=== PATIENT | female | born 1960 | race Hispanic/Latino ===

== ENCOUNTER 2017-06-16 17:00 | Emergency (ER) | payer MEDICARE, MEDICAID ==
[2017-06-16 17:10] VITALS: BP 183/90; PULSE 84; RESP 23; TEMP 98.7; O2SAT 98; BMI 28.4
[2017-06-16] MEDS: Albuterol-Ipratrop 3 mg / 0.5 (3 ml) UD IH SCH ×2 (17:13→17:30)
--- NOTE | 2017-06-16 17:16 | ED PDOC ---
Arrival/HPI - General Time Seen by Provider: 06/16/17 17:04 Historian: Patient - History of Present Illness Narrative History of Present Illness (Text): 06/16/17 17:05 Juana Sadler is a 57 year old female, whose past medical history includes COPD , asthma, hypertension, and hyperlipidemia, who presents to the Emergency department complaining of a worsening cough for the past three weeks. Patient reports she has been experiencing shortness of breath, rhinorrhea, congestion, and yellow sputum. She is a current smoker and states she was placed on antibiotics for her cough by her PMD, but was then recommended to come to the Emergency department since her symptoms became worse. Patient denies chest pain , headache, fever, chills, back pain, nausea, vomiting, diarrhea, abdominal pain , lower extremity pain/swelling, or other complaints. PMD: Dr. Guerrero Time/Duration: > week (3 weeks) Symptom Onset: Gradual Symptom Course: Worsening Modifying Factors (Text): None Associated Symptoms (Text): shortness of breath, rhinorrhea, and yellow sputum. Past Medical History - Provider Review Nursing Documentation Reviewed: Yes - Cardiac Hx Pacemaker: No - Neurological Hx Paralysis: No - Hematological/Oncological Hx Blood Transfusions: No - Musculoskeletal/Rheumatological Hx Musculoskeletal Disorders: Yes (SCIATICA) - Psychiatric Hx Emotional Abuse: No Hx Physical Abuse: No Hx Substance Use: No - Anesthesia Hx Anesthesia Reactions: No Hx Malignant Hyperthermia: No - Suicidal Assessment Feels Threatened In Home Enviroment: No Family/Social History - Physician Review Nursing Documentation Reviewed: Yes Family/Social History: Unknown Family HX Smoking Status: Light Smoker < 10 Cigarettes Daily Hx Alcohol Use: No Hx Substance Use: No Allergies/Home Meds Allergies/Adverse Reactions: Allergies No Known Allergies Allergy (Verified 06/18/17 00:25) Home Medications: Home Meds Medication Instructions Recorded Confirmed Aspirin [Aspirin] 325 mg PO DAILY 11/19/15 06/18/17 Atorvastatin [Lipitor] 40 mg PO QPM 11/19/15 06/18/17 Ipratropium [Atrovent HFA] 1 puff INH DAILY 11/19/15 06/18/17 Levothyroxine [Synthroid] 188 mcg PO DAILY 11/19/15 06/18/17 Losartan [Cozaar] 50 mg PO DAILY 11/19/15 06/18/17 Oxycodone HCl [Oxycodone HCl] 10 mg PO Q6H PRN 11/19/15 06/18/17 Budesonide/Formoterol Fumarate 1 inh INH DAILY 06/16/17 06/18/17 [Symbicort 160-4.5 Mcg Inhaler] Fenofibrate Nanocrystallized 145 mg PO DAILY 06/16/17 06/18/17 [Fenofibrate] Gabapentin [Neurontin] 300 mg PO PRN PRN 06/16/17 06/18/17 tiZANidine [Zanaflex] 4 mg PO PRN PRN 06/16/17 06/18/17 Review of Systems - Physician Review All systems were reviewed & negative as marked: Yes - Review of Systems Constitutional: absent: Fevers ENT: Rhinorrhea Respiratory: SOB, Cough, Sputum (yellow) Cardiovascular: absent: Chest Pain Neurological: absent: Headache Physical Exam Vital Signs Temp Pulse Resp BP Pulse Ox 06/16/17 17:20 23 98 06/16/17 17:09 98.7 F 84 23 183/90 H 98 Temperature: Afebrile Blood Pressure: Hypertensive Pulse: Regular Respiratory Rate: Normal Appearance: Positive for: Well-Appearing, Non-Toxic, Comfortable Pain Distress: None Mental Status: Positive for: Alert and Oriented X 3 - Systems Exam Head: Present: Atraumatic, Normocephalic Pupils: Present: PERRL Extroacular Muscles: Present: EOMI Conjunctiva: Present: Normal Mouth: Present: Moist Mucous Membranes Neck: Present: Normal Range of Motion Respiratory/Chest: Present: Decreased Breath Sounds (bilateral decreased breath sounds), Rhonchi (diffused rhonchi) Cardiovascular: Present: Regular Rate and Rhythm, Normal S1, S2. No: Murmurs Abdomen: Present: Normal Bowel Sounds. No: Tenderness, Distention, Peritoneal Signs Back: Present: Normal Inspection Upper Extremity: Present: Normal Inspection. No: Cyanosis, Edema Lower Extremity: Present: Normal Inspection. No: Edema Neurological: Present: GCS=15, CN II-XII Intact, Speech Normal Skin: Present: Warm, Dry, Normal Color. No: Rashes Psychiatric: Present: Alert, Oriented x 3, Normal Insight, Normal Concentration Medical Decision Making ED Course and Treatment: 06/16/17 17:05 Impression: 57 year old female with worsening cough and shortness of breath. Plan: -- EKG -- Chest X-ray -- Labs -- Urinalysis -- Duoneb and Solumedrol -- Reassess and disposition Progress Notes: EKG: Ordered, reviewed, and independently interpreted the EKG. Rate : 81 BPM Rhythm : NSR Interpretation : No ST-segment elevations or depressions, no T-wave inversions, normal intervals. 06/16/17 18:17 Leaving Against Medical Advice (AMA): Patient is persistently wheezing and is tachypneic. The patient is choosing to leave against medical advice. I have personally explained to the patient that choosing to do so may result in permanent bodily harm or . I have discussed at great length that without further evaluation and monitoring there may be unforeseen circumstances and/or deterioration causing permanent bodily harm or as a result of their choice. The patient is alert, oriented, and shows the mental capacity to make clear decisions regarding the patients health care at this time. The patient continues to wish to leave against medical advice and states she has to go take care of her dog. In light of the patients decision to leave against medical advice, follow-up has been arranged and the patient is aware of the importance to following up as instructed. The patient has been advised that they should return to the emergency room immediately if they change their mind at any time, or if their condition begins to change or worsen in any way. - Lab Interpretations Lab Results: 06/16/17 17:20 06/16/17 17:20 Lab Results 06/16/17 18:30: Urine Color Yellow, Urine Appearance Clear, Urine pH 6.0, Ur Specific [place] 1.010, Urine Protein Negative, Urine Glucose (UA) Negative, Urine Ketones Negative, Urine Blood Trace-lysed H, Urine Nitrate Negative, Urine Bilirubin Negative, Urine Urobilinogen 0.2, Ur Leukocyte Esterase Negative , Urine RBC 1 - 3, Urine WBC 0 - 2, Ur Epithelial Cells 0 - 2 06/16/17 17:20: Sodium 143, Chloride 105, Potassium 4.3, Carbon Dioxide 28, Anion Gap 14, BUN 17, Creatinine 0.8, Est GFR ( Amer) > 60, Est GFR (Non- Af Amer) > 60, Random Glucose 88, Calcium 9.2, Magnesium 1.8, Total Bilirubin 0.4, AST 37, ALT 34, Alkaline Phosphatase 99, Lactate Dehydrogenase 526, Total Creatine Kinase 93, Troponin I < 0.01, NT-Pro-B Natriuret Pep 678 H, Total Protein 6.7, Albumin 3.6, Globulin 3.1, Albumin/Globulin Ratio 1.2 06/16/17 17:20: PT 10.7, INR 0.99, APTT 25.7 06/16/17 17:20: WBC 9.6, RBC 4.58, Hgb 13.3, Hct 41.0, MCV 89.5, MCH 29.0, MCHC 32.4, RDW 16.4 H, Plt Count 384, MPV 9.4, Gran % 65.3, Lymph % (Auto) 24.3, [place] % (Auto) 7.8 H, Eos % (Auto) 2.3, Baso % (Auto) 0.3, Gran # 6.24, Lymph # 2.3, [place] # 0.8 H, Eos # 0.2, Baso # 0.03 06/16/17 17:20: pO2 36, VBG pH 7.32, VBG pCO2 54.0, VBG HCO3 27.8, VBG Total CO2 29.5 H, VBG O2 Sat (Calc) 73.4 H, VBG Base Excess 0.7, VBG Potassium 4.4, Sodium 141.0, Chloride 111.0 H, Glucose 91, Lactate 1.2, FiO2 21.0, Venous Blood Potassium 4.4 I have reviewed the lab results: Yes - RAD Interpretation Radiology Orders: 06/16/17 17:10 CHEST PORTABLE [RAD] Stat - EKG Interpretation Interpreted by ED Physician: Yes Type: 12 lead EKG - Medication Orders Current Medication Orders: Discontinued Medications Albuterol/Ipratropium (Duoneb 3 Mg/0.5 Mg (3 Ml) Ud) 3 ml IH Q15M ZARA Stop: 06/16/17 17:46 Last Admin: 06/16/17 17:30 Dose: 3 ml Methylprednisolone (Solu-Medrol) 125 mg IVP STAT STA Stop: 06/16/17 17:11 Last Admin: 06/16/17 17:30 Dose: 125 mg - Scribe Statement The provider has reviewed the documentation as recorded by the Scribe 06/16/2017 Hailey Streeter Provider [place] Attestation: All medical record entries made by the Scribe were at my direction and personally dictated by me. I have reviewed the chart and agree that the record accurately reflects my personal performance of the history, physical exam, medical decision making, and the department course for this patient. I have also personally directed, reviewed, and agree with the discharge instructions and disposition. Disposition/Present on Arrival - Present on Arrival Any Indicators Present on Arrival: No - Disposition Have Diagnosis and Disposition been Completed?: Yes Diagnosis: COPD (chronic obstructive pulmonary disease), Elevated brain natriuretic peptide (BNP) level Disposition: AGAINST MEDICAL ADVICE Disposition Time: 05:00 Condition: UNKNOWN Discharge Instructions (ExitCare): COPD (Chronic Obstructive Pulmonary Disease ) (ED), Against Medical Advice (ED) Additional Instructions: please follow up with your doctor. return to emergency room with worsening symptoms or concerns. Prescriptions: Albuterol 0.083% [Albuterol 0.083% Inhal Araceli (2.5 mg/3 ml) UD] 2.5 mg IH Q6 PRN #20 neb PRN Reason: Wheezing Mask, Face [Nebulizer Aerosol Mask Adult] 1 dev XX PRN PRN #1 dev PRN Reason: Wheezing Nebulizer [Aeroeclipse II] 1 each MC Q6 PRN #1 each PRN Reason: Wheezing Prednisone 50 mg PO DAILY #5 tablet Forms: [employer] (Citizen [place])
[2017-06-16 17:42] LABS: VENOUS BLOOD GAS BASE EXCESS 0.7 mmol/L (0.0-2.0); VENOUS BLOOD GAS PO2 36 mm/Hg (30-55); VENOUS BLOOD PH 7.32 (7.32-7.43)
[2017-06-16 17:47] LABS: BASO # 0.03 K/mm3 (0.0-2.0); BASO % 0.3 % (0.0-3.0); EOS # 0.2 (0.0-0.7); EOS % 2.3 % (1.5-5.0); GRAN # 6.24 (1.4-6.5); GRAN % 65.3 % (50.0-68.0); HEMOGLOBIN 13.3 gm/dL (12.0-16.0); LYMPH # 2.3 (1.2-3.4); LYMPH % 24.3 % (22.0-35.0); MEAN CELL VOLUME 89.5 fL (80.0-105.0); MEAN CORPUSCULAR HGB CONC 32.4 g/dl (31.0-37.0); MEAN PLATELET VOLUME 9.4 fl (7.0-11.0); MONO # 0.8 (0.1-0.6); MONO % 7.8 % (1.0-6.0); PLATELET COUNT 384 10^3/uL (120.0-450.0); RBC 4.58 10^6/uL (3.5-6.1); RED CELL DISTRIBUTION WIDTH 16.4 % (11.5-14.5); WHITE BLOOD COUNT 9.6 10^3/ul (4.5-11.0)
[2017-06-16 17:50] LABS: ALB/GLOB RATIO 1.2 (1.1-1.8); ALBUMIN 3.6 g/dL (3.0-4.8); ALT/SGPT 34 U/L (7-56); AST/SGOT 37 U/L (15-39); BLOOD UREA NITROGEN 17 mg/dL (7-21); CALCIUM 9.2 mg/dL (8.4-10.5); GFR AFRICAN-AMERICAN > 60; GFR NON-AFRICAN AMERICAN > 60; MAGNESIUM 1.8 mg/dL (1.7-2.2)
[2017-06-16 17:55] LABS: INR 0.99 (0.93-1.08); PARTIAL THROMBOPLASTIN TIME 25.7 Seconds (23.7-30.8); PROTHROMBIN TIME 10.7 Seconds (9.9-11.8)
[2017-06-16 18:01] LABS: B-TYPE NATRIURETIC PEPTIDE 678 pg/mL (0-450)
[2017-06-16 18:02] LABS: TROPONIN I < 0.01 ng/mL
[2017-06-16 18:50] LABS: URINE BILIRUBIN NEGATIVE (NEGATIVE); URINE BLOOD TRACE-LYSED (NEGATIVE); URINE GLUCOSE (UA) NEGATIVE (NEGATIVE); URINE LEUKOCYTE ESTERASE NEGATIVE Leu/uL (NEGATIVE); URINE NITRATE NEGATIVE (NEGATIVE); URINE PROTEIN NEGATIVE mg/dL (<30 mg/dL); URINE UROBILINOGEN 0.2 E.U./dL (<1 E.U./dL)
[2017-06-16 18:51] LABS: URINE APPEARANCE CLEAR (CLEAR); URINE COLOR YELLOW (YELLOW)
[2017-06-16 19:06] LABS: URINE EPITHELIAL CELLS 0 - 2 /hpf (0-5); URINE WBC 0 - 2 /hpf (0-6)
--- NOTE | 2017-06-17 10:45 | CARD ---
APPROVED REPORT EKG Measurement Heart [id number] <Conclusion> Normal sinus rhythm Anteroseptal infarct, age undetermined LAD STTW changes C/W ECG 05/26/16: LBBB no longer presnt
--- NOTE | 2017-06-17 12:22 | RAD ---
HISTORY: cough COMPARISON: 05/26/2016 FINDINGS: LUNGS: Multiple scattered calcified granulomas. No acute findings PLEURA: No significant pleural effusion identified, no pneumothorax apparent. CARDIOVASCULAR: Normal. OSSEOUS STRUCTURES: No significant abnormalities. VISUALIZED UPPER ABDOMEN: Normal. OTHER FINDINGS: None. IMPRESSION: No active disease.
== END 2017-06-16 18:30 | disposition left against medical advice (07) ==
LOC: ED 17:00
DX: J44.9 Chronic obstructive pulmonary disease, unspecified (principal); R79.89 Other specified abnormal findings of blood chemistry
CPT/HCPCS: 71010; 80053; 81001; 82550; 82803; 83615; 83735; 83880; 84484; 85025; 85610; 85730; 93005; 96374; 99284; J2930

== ENCOUNTER 2017-06-17 23:13 | Inpatient (IN) | payer MEDICARE, MEDICAID ==
[2017-06-17 23:14] VITALS: BMI 28.4
--- NOTE | 2017-06-17 23:18 | ED PDOC ---
Arrival/HPI - General Time Seen by Provider: 06/17/17 23:14 Historian: Patient - History of Present Illness Narrative History of Present Illness (Text): 06/17/17 23:17 Juana Sadler is a 57 year old female smoker, whose past medical history includes COPD, asthma, hypertension, and hyperlipidemia, who presents to the Emergency department complaining of worsening shortness of breath tonight. Patient reports associated cough and congestion. Patient was seen in the Emergency department yesterday for similar complaints, had a full work-up, and was offered hospital admission for further evaluation. Patient reports she felt better and left against medical advice. Patient states today symptoms returned and worsened throughout the day. Patient denies any nausea, vomiting, diarrhea, urinary symptoms, back pain, neck pain, headache, dizziness, or any other complaints. PMD: Dr. Jade Guerrero Time/Duration: Other (tonight) Symptom Onset: Gradual Symptom Course: Worsening Activities at Onset: Rest, Light Context: Home Past Medical History - Provider Review Nursing Documentation Reviewed: Yes - Cardiac Hx Pacemaker: No - Pulmonary Hx Respiratory Disorders: Yes Hx Chronic Obstructive Pulmonary Disease (COPD): Yes - Neurological Hx Paralysis: No - HEENT Hx HEENT Disorder: No - Renal Hx Renal Disorder: No - Endocrine/Metabolic Hx Endocrine Disorders: No - Hematological/Oncological Hx Blood Transfusions: No - Integumentary Hx Dermatological Disorder: No - Musculoskeletal/Rheumatological Hx Musculoskeletal Disorders: Yes (SCIATICA) - Gastrointestinal Hx Gastrointestinal Disorders: No - Genitourinary/Gynecological Hx Genitourinary Disorders: No - Psychiatric Hx Emotional Abuse: No Hx Physical Abuse: No Hx Substance Use: No - Surgical History Hx Cholecystectomy: Yes - Anesthesia Hx Anesthesia Reactions: No Hx Malignant Hyperthermia: No - Suicidal Assessment Feels Threatened In Home Enviroment: No Family/Social History - Physician Review Nursing Documentation Reviewed: Yes Family/Social History: Unknown Family HX Smoking Status: Light Smoker < 10 Cigarettes Daily Hx Alcohol Use: No Hx Substance Use: No Allergies/Home Meds Allergies/Adverse Reactions: Allergies No Known Allergies Allergy (Verified 06/18/17 00:25) Home Medications: Home Meds Medication Instructions Recorded Confirmed Aspirin [Aspirin] 325 mg PO DAILY 11/19/15 06/18/17 Atorvastatin [Lipitor] 40 mg PO QPM 11/19/15 06/18/17 Ipratropium [Atrovent HFA] 1 puff INH DAILY 11/19/15 06/18/17 Levothyroxine [Synthroid] 188 mcg PO DAILY 11/19/15 06/18/17 Losartan [Cozaar] 50 mg PO DAILY 11/19/15 06/18/17 Oxycodone HCl [Oxycodone HCl] 10 mg PO Q6H PRN 11/19/15 06/18/17 Budesonide/Formoterol Fumarate 1 inh INH DAILY 06/16/17 06/18/17 [Symbicort 160-4.5 Mcg Inhaler] Fenofibrate Nanocrystallized 145 mg PO DAILY 06/16/17 06/18/17 [Fenofibrate] Gabapentin [Neurontin] 300 mg PO PRN PRN 06/16/17 06/18/17 tiZANidine [Zanaflex] 4 mg PO PRN PRN 06/16/17 06/18/17 Review of Systems - Physician Review All systems were reviewed & negative as marked: Yes - Review of Systems Constitutional: Normal. absent: Fevers Eyes: Normal ENT: Other (+congestion) Respiratory: SOB, Cough Gastrointestinal: Normal. absent: Abdominal Pain, Diarrhea, Nausea, Vomiting Genitourinary Female: Normal. absent: Dysuria, Frequency, Hematuria, Urine Output Changes Musculoskeletal: Normal. absent: Back Pain, Neck Pain Skin: Normal. absent: Rash Neurological: Normal. absent: Headache, Dizziness Endocrine: Normal Hemo/Lymphatic: Normal Psychiatric: Normal Physical Exam Vital Signs Reviewed: Yes Vital Signs Temp Pulse Resp BP Pulse Ox 06/18/17 01:46 99 H 20 119/66 98 06/18/17 01:18 95 H 21 136/61 96 06/17/17 23:15 98.8 F 94 H 22 120/60 98 Temperature: Afebrile Blood Pressure: Normal Pulse: Regular Respiratory Rate: Normal Appearance: Positive for: Well-Appearing, Non-Toxic, Comfortable Pain Distress: None Mental Status: Positive for: Alert and Oriented X 3 - Systems Exam Head: Present: Atraumatic, Normocephalic Pupils: Present: PERRL Extroacular Muscles: Present: EOMI Conjunctiva: Present: Normal Mouth: Present: Moist Mucous Membranes Neck: Present: Normal Range of Motion Respiratory/Chest: Present: Wheezes. No: Respiratory Distress, Accessory Muscle Use Cardiovascular: Present: Regular Rate and Rhythm, Normal S1, S2. No: Murmurs Abdomen: Present: Normal Bowel Sounds. No: Tenderness, Distention, Peritoneal Signs Back: Present: Normal Inspection Upper Extremity: Present: Normal Inspection. No: Cyanosis, Edema Lower Extremity: Present: Normal Inspection. No: Edema Neurological: Present: GCS=15, CN II-XII Intact, Speech Normal Skin: Present: Warm, Dry, Normal Color. No: Rashes Psychiatric: Present: Alert, Oriented x 3, Normal Insight, Normal Concentration Medical Decision Making ED Course and Treatment: 06/17/17 23:17 Impression: 57 year old female complaining of worsening shortness of breath, cough, and congestion. Differential Diagnosis included but are not limited to: COPD vs. CHF vs. ACS vs. pneumonia vs. bronchitis Plan: -- EKG -- Chest X-ray -- Labs, cardiac enzymes, BNP, blood cultures, VBG -- Duoneb -- Solu-medrol -- Reassess and disposition Prior Visits: Notes and results from previous visits were reviewed. On 06/16/2017, pt was seen in the Emergency department for shortness of breath, cough, and congestion. Progress Notes: 06/18/17 00:26 Reviewed radiology, Chest X-ray shows no acute processes. 06/18/17 00:28 Reviewed EKG, NSR at [address] bpm[address] Non-specific ST/T wave changes. 06/18/17 00:56 Potassium: 3.2 noted, K-dur ordered. 06/18/17 00:[address] Guerrero, who is aware and agrees with plan. Accepts pt in to his service. Pt will go to Telemetry observation for COPD. Pt is no acute distress. Discussed results and hospital observation plan with pt , who is aware and verbalizes understanding. - Lab Interpretations Microbiology Results: Microbiology Results 06/18/17 00:05 Blood-Venous Blood Culture - Preliminary NO GROWTH AFTER 24 HOURS 06/17/17 00:00 Blood-Venous Blood Culture - Preliminary NO GROWTH AFTER 24 HOURS Lab Results: 06/17/17 23:35 06/17/17 23:35 Lab Results 06/18/17 03:35: pO2 56 H, VBG pH 7.38, VBG pCO2 42.0, VBG HCO3 24.8, VBG Total CO2 26.1, VBG O2 Sat (Calc) 92.5 H, VBG Base Excess -0.4 L, VBG Potassium 3.7, Sodium 143.0, Chloride 113.0 H, Glucose 182 H, Lactate 1.8, FiO2 21.0, Venous Blood Potassium 3.7 06/17/17 23:35: Sodium 143, Chloride 109 H, Potassium 3.2 L, Carbon Dioxide 23, Anion Gap 14, BUN 23 H, Creatinine 0.8, Est GFR ( Amer) > 60, Est GFR ( Non-Af Amer) > 60, Random Glucose 204 H, Calcium 9.1, Total Bilirubin 0.3, AST 27, ALT 34, Alkaline Phosphatase 90, Lactate Dehydrogenase 484, Total Creatine Kinase 128, Troponin I 0.06 D, NT-Pro-B Natriuret Pep 1340 H, Total Protein 6.4 , Albumin 3.6, Globulin 2.8, Albumin/Globulin Ratio 1.3 06/17/17 23:35: pO2 40, VBG pH 7.41, VBG pCO2 40.0, VBG HCO3 25.4, VBG Total CO2 26.6, VBG O2 Sat (Calc) 82.1 H, VBG Base Excess 0.7, VBG Potassium 3.2 L, Sodium 143.0, Chloride 113.0 H, Glucose 212 H, Lactate 2.3 H, FiO2 21.0, Venous Blood Potassium 3.2 L 06/17/17 23:35: WBC 13.4 H D, RBC 4.46, Hgb 12.6, Hct 40.0, MCV 89.7, MCH 28.3, MCHC 31.5, RDW 16.9 H, Plt Count 385, MPV 9.6, Gran % 88.0 H, Lymph % (Auto) 6.3 L, [place] % (Auto) 5.6, Eos % (Auto) 0.0 L, Baso % (Auto) 0.1, Gran # 11.75 H , Lymph # 0.8 L, [place] # 0.8 H, Eos # 0.0, Baso # 0.01 I have reviewed the lab results: Yes - RAD Interpretation Radiology Orders: 06/17/17 23:30 CHEST PORTABLE [RAD] Stat [employer] Technical Assistant: ED Physician - EKG Interpretation Interpreted by ED Physician: Yes Type: 12 lead EKG - Medication Orders Current Medication Orders: Acetaminophen (Tylenol 325mg Tab) 650 mg PO Q4H PRN PRN Reason: Pain, Mild (1-3) Last Admin: 06/19/17 10:50 Dose: 650 mg Re-Assess: JUDY Pain/Vitals Document 06/19/17 11:50 GARY (Rec: 06/19/17 16:31 GARY [id number]) Pain Reassessment Is This A Pain ReAssessment? Yes Sleep Is patient sleeping during reassessment? No Presence of Pain Presence of Pain No Albuterol/Ipratropium (Duoneb 3 Mg/0.5 Mg (3 Ml) Ud) 3 ml IH [id number] [facility] Last Admin: 06/19/17 13:42 Dose: 3 ml Albuterol/Ipratropium (Duoneb 3 Mg/0.5 Mg (3 Ml) Ud) 3 ml IH Q2H PRN PRN Reason: Shortness of Breath Amlodipine Besylate (Norvasc) 5 mg PO DAILY [facility] Last Admin: 06/19/17 10:44 Dose: 5 mg Aspirin (Aspirin) 325 mg PO DAILY [facility] Last Admin: 06/19/17 10:43 Dose: 325 mg Atorvastatin Calcium (Lipitor) 40 mg PO DIN [facility] Last Admin: 06/19/17 18:32 Dose: 40 mg Budesonide (Pulmicort Respules) 0.5 mg IH [id number] [facility] Last Admin: 06/19/17 07:59 Dose: 0.5 mg Enoxaparin Sodium (Lovenox) 30 mg SC DAILY [facility] PRN Reason: Protocol Last Admin: 06/19/17 10:52 Dose: 30 mg Fenofibrate (Tricor) 145 mg PO DAILY [facility] Last Admin: 06/19/17 10:43 Dose: 145 mg Furosemide (Lasix) 20 mg IVP DAILY [facility] Last Admin: 06/19/17 10:45 Dose: 20 mg Gabapentin (Neurontin) 300 mg PO TID [facility] PRN Reason: Protocol Last Admin: 06/19/17 18:32 Dose: 300 mg Insulin Human Regular (Humulin R High) 0 units SC ACHS [facility] PRN Reason: Protocol Last Admin: 06/19/17 16:50 Dose: 2 units Levofloxacin (Levaquin) 500 mg PO DAILY [facility] Last Admin: 06/19/17 10:44 Dose: 500 mg Levothyroxine Sodium (Synthroid) 100 mcg PO 0600 [facility] Last Admin: 06/19/17 05:38 Dose: 100 mcg Levothyroxine Sodium (Synthroid) 88 mcg PO ACB [facility] Last Admin: 06/19/17 10:51 Dose: 88 mcg Losartan Potassium (Cozaar) 50 mg PO DAILY [facility] Last Admin: 06/19/17 10:51 Dose: 50 mg Methylprednisolone (Solu-Medrol) 40 mg IVP Q12 [facility] Last Admin: 06/19/17 10:54 Dose: 40 mg Tizanidine HCl (Zanaflex) 4 mg PO TID PRN PRN Reason: Tension Discontinued Medications Albuterol/Ipratropium (Duoneb 3 Mg/0.5 Mg (3 Ml) Ud) 3 ml IH Q15M ZARA Stop: 06/18/17 00:01 Last Admin: 06/18/17 00:03 Dose: 3 ml Clonidine HCl (Catapres) 0.2 mg PO STAT STA Stop: 06/18/17 22:23 Last Admin: 06/18/17 22:47 Dose: 0.2 mg Clonidine HCl (Catapres) 0.1 mg PO STAT STA Stop: 06/19/17 01:29 Last Admin: 06/19/17 01:41 Dose: 0.1 mg Clonidine HCl (Catapres) 0.1 mg PO STAT STA Stop: 06/19/17 03:30 Last Admin: 06/19/17 03:53 Dose: 0.1 mg Iodixanol (Visipaque 320 Mg/Ml 100 Ml) Confirm Administered Dose 100 ml IV .STK- MED ONE Stop: 06/19/17 12:49 Losartan Potassium (Cozaar) 50 mg PO STAT STA Stop: 06/18/17 18:19 Last Admin: 06/18/17 18:24 Dose: 50 mg Methylprednisolone (Solu-Medrol) 60 mg IVP ONCE ONE Stop: 06/17/17 23:31 Last Admin: 06/17/17 23:51 Dose: 60 mg Methylprednisolone (Solu-Medrol) 40 mg IVP Q8H [facility] Last Admin: 06/18/17 22:48 Dose: 40 mg Potassium Chloride (K-Dur 20 Meq Er Tab) 40 meq PO STAT STA Stop: 06/18/17 00:57 Last Admin: 06/18/17 01:24 Dose: 40 meq Potassium Chloride (K-Dur 20 Meq Er Tab) 20 meq PO ONCE ONE Stop: 06/18/17 11:01 Last Admin: 06/18/17 11:58 Dose: 20 meq - Scribe Statement The provider has reviewed the documentation as recorded by the Delilah Matamoros Provider Scribe Attestation: All medical record entries made by the Scribe were at my direction and personally dictated by me. I have reviewed the chart and agree that the record accurately reflects my personal performance of the history, physical exam, medical decision making, and the department course for this patient. I have also personally directed, reviewed, and agree with the discharge instructions and disposition. Disposition/Present on Arrival - Present on Arrival Any Indicators Present on Arrival: No History of DVT/PE: No History of Uncontrolled Diabetes: No Urinary Catheter: No History Surgical Site Infection Following: None - Disposition Have Diagnosis and Disposition been Completed?: Yes Diagnosis: Chronic obstructive lung disease Disposition: HOSPITALIZED Disposition Time: 01:00 Condition: FAIR
[2017-06-17] MEDS: Albuterol-Ipratrop 3 mg / 0.5 (3 ml) UD IH SCH ×2 (23:30→23:51)
[2017-06-18 00:03] LABS: BASO # 0.01 K/mm3 (0.0-2.0); BASO % 0.1 % (0.0-3.0); GRAN # 11.75 (1.4-6.5); HEMOGLOBIN 12.6 gm/dL (12.0-16.0); LYMPH # 0.8 (1.2-3.4); LYMPH % 6.3 % (22.0-35.0); MEAN CELL VOLUME 89.7 fL (80.0-105.0); MEAN CORPUSCULAR HEMOGLOBIN 28.3 pg (25.0-35.0); MEAN CORPUSCULAR HGB CONC 31.5 g/dl (31.0-37.0); MEAN PLATELET VOLUME 9.6 fl (7.0-11.0); MONO # 0.8 (0.1-0.6); MONO % 5.6 % (1.0-6.0); PLATELET COUNT 385 10^3/uL (120.0-450.0); RBC 4.46 10^6/uL (3.5-6.1); RED CELL DISTRIBUTION WIDTH 16.9 % (11.5-14.5); WHITE BLOOD COUNT 13.4 10^3/ul (4.5-11.0)
[2017-06-18] MEDS: Albuterol-Ipratrop 3 mg / 0.5 (3 ml) UD IH SCH ×4 (00:03→21:15)
[2017-06-18 00:06] LABS: VENOUS BLOOD GAS BASE EXCESS 0.7 mmol/L (0.0-2.0); VENOUS BLOOD GAS PO2 40 mm/Hg (30-55); VENOUS BLOOD PH 7.41 (7.32-7.43)
[2017-06-18 00:19] LABS: ALB/GLOB RATIO 1.3 (1.1-1.8); ALBUMIN 3.6 g/dL (3.0-4.8); ALT/SGPT 34 U/L (7-56); AST/SGOT 27 U/L (15-39); BLOOD UREA NITROGEN 23 mg/dL (7-21); CALCIUM 9.1 mg/dL (8.4-10.5); GFR AFRICAN-AMERICAN > 60; GFR NON-AFRICAN AMERICAN > 60
[2017-06-18 00:31] LABS: B-TYPE NATRIURETIC PEPTIDE 1340 pg/mL (0-450); TROPONIN I 0.06 ng/mL
[2017-06-18] MEDS ORDERED: Potassium Chloride 20 mEq ER Tab PO STA (00:56)
[2017-06-18] MEDS ORDERED: Albuterol-Ipratrop 3 mg / 0.5 (3 ml) UD IH PRN ×2 (00:59→06:51)
[2017-06-18 04:08] LABS: VENOUS BLOOD GAS BASE EXCESS -0.4 mmol/L (0.0-2.0); VENOUS BLOOD GAS PO2 56 mm/Hg (30-55); VENOUS BLOOD PH 7.38 (7.32-7.43)
[2017-06-18] MEDS: MethylPREDNISolone 40 mg Vial IVP SCH ×3 (07:11→22:48)
[2017-06-18] MEDS: Budesonide 0.5 mg/2 ml Inhal Susp UD IH SCH ×2 (07:58→21:15)
--- NOTE | 2017-06-18 09:45 | CON ---
DATE: REASON FOR CONSULTATION: Chronic obstructive pulmonary disease. REFERRING PHYSICIAN: Vikas Guerrero DO HISTORY OF PRESENT ILLNESS: The patient is a 57-year-old female, with past medical history significant for chronic obstructive pulmonary disease, asthma, hypertension, hyperlipidemia, who presents to [facility] with a 2-day history of worsening shortness of breath at rest, dyspnea on exertion, cough, and minimal sputum production. The patient was actually seen in the emergency room 2 days ago and admitted, but she signed out against medical advice. There is no history of chest pain, coughing up blood, or chest pain - made worse with deep respirations. There is no history of temperatures, chills or infectious exposure. There is no history of night sweats, weight loss, or appetite change prior to the above events. No history of leg or calf pains. No history of syncope or diaphoresis. No history of recent travel or trauma. REVIEW OF SYSTEMS: No history of nausea, vomiting, or diarrhea. No acute urinary symptoms. No new neurologic or musculoskeletal complaints. Rest of the review of systems is negative. ALLERGIES: No known allergies. SOCIAL HISTORY: Positive for extensive tobacco usage - still smokes, no alcohol. FAMILY HISTORY: No inheritable diseases. HOME MEDICATIONS: Include Zanaflex, oxycodone, Cozaar, Synthroid, Atrovent HFA, Neurontin, Symbicort, Lipitor, aspirin. PHYSICAL EXAMINATION GENERAL: The patient appears comfortable this morning. She is not short of breath at rest. VITAL SIGNS: Temperature 98.2, pulse 72, respirations 18, blood pressure 144/72, oxygen saturation on nasal cannula was 98%. HEENT: Normocephalic, atraumatic. NECK: No JVD. CARDIOVASCULAR: Positive S1 and S2. No S3. LUNGS: Scattered bilateral rhonchi and wheezing are present. GASTROINTESTINAL: Abdomen is soft, nontender, nondistended. Bowel sounds are positive. EXTREMITIES: No clubbing, cyanosis or edema. Calf are nontender to palpation. SKIN: No acute rash. NEUROLOGIC: Limited at the present time. PERTINENT LABORATORY DATA: Chest x-ray was done and reviewed. There is no active disease present. Complete metabolic profile: Potassium 3.2, chloride 109, BUN 23, glucose 204. Troponin 0.06. B-type natriuretic peptide 1340. Rest of the metabolic profile within normal limits. CBC: White count 13.4, hemoglobin 12.6, hematocrit 40.0, platelets 385. IMPRESSION: 1. Acute bronchitis. 2. Chronic obstructive pulmonary disease. 3. Asthma. 4. Electrolyte abnormalities. PLAN: The patient presents to [facility] with a 2-day history of worsening pulmonary symptoms. As above, the patient was seen in the emergency room and admitted 2 days ago. However, she signed out against medical advice. She then presented back to the emergency room last night for admission. I did review the chest x-ray as above. There is no acute disease present. I did compared the most recent film back to her films of 2014. On physical exam, the patient is in moderate bronchospasm. However, there is no significant alveolar - arterial gradient. Oxygen saturation on nasal cannula is 98%. I will start the patient on DuoNeb treatments, inhaled Pulmicort, and intravenous steroids this morning. Due to the patient's age and above diagnosis, I will also start oral antibiotic therapy. There is no history of temperatures. The patient does feel better this morning and it is clinically improved - compared to the past few days. Additional pulmonary intervention will be based on the clinical status of the patient. I will discuss the above with Dr. Guerrero this morning. Waylon Shields MD MTDMason
--- NOTE | 2017-06-18 10:02 | CARD ---
APPROVED REPORT EKG Measurement Heart [id number] <Conclusion> Normal sinus rhythm Possible Left atrial enlargement Septal infarct, age undetermined Possible IMI, age unknown LAD STTW changes IVCD T waves faltter in V 4 - 6 c/w ECG 06/16/17
[2017-06-18] MEDS: levoFLOXacin 500 MG TAB PO SCH (10:29)
[2017-06-18] MEDS ORDERED: Potassium Chloride 20 mEq ER Tab PO ONE (11:00)
[2017-06-18] MEDS: Insulin Reg-HIGH-Coverage SC SCH ×3 (11:58→22:51)
--- NOTE | 2017-06-18 12:21 | RAD ---
HISTORY: sob COMPARISON: 06/16/2017 FINDINGS: LUNGS: Scattered multiple small granulomas. No acute findings PLEURA: No significant pleural effusion identified, no pneumothorax apparent. CARDIOVASCULAR: Normal. OSSEOUS STRUCTURES: No significant abnormalities. VISUALIZED UPPER ABDOMEN: Normal. OTHER FINDINGS: None. IMPRESSION: No active disease.
--- NOTE | 2017-06-18 22:23 | CP.PCM.PN ---
Subjective - Date & Time of Evaluation Date of Evaluation: 06/18/17 Time of Evaluation: 22:19 - Subjective Subjective: Patient was seen at bedside . Because the nurse told me that BP was 164/88 earlier for which losartan was given. BP is now 196/98. She has little sob. No other complaints . Denies head ache, dizziness, lightheadedness, heaviness in head, nausea, vomiting, chest pain. ROS: Negative except as mentioned above. Medical record was reviewed. This 57 year old white woman was admitted with sob, cough , congestion. Has PMH of COPD, asthma, HLD,HTN. Objective - Vital Signs/Intake and Output Vital Signs (last 24 hours): Temp Pulse Resp BP Pulse Ox 98.4 F 96 H 20 164/88 H 95 06/18/17 16:30 06/18/17 18:24 06/18/17 16:30 06/18/17 18:24 06/18/17 16:30 Intake and Output: 06/18/17 06/19/17 18:59 06:59 Intake Total 540 Balance 540 - Medications Medications: Current Medications Acetaminophen (Tylenol 325mg Tab) 650 mg PO Q4H PRN PRN Reason: Pain, Mild (1-3) Albuterol/Ipratropium (Duoneb 3 Mg/0.5 Mg (3 Ml) Ud) 3 ml IH [id number] [facility] Last Admin: 06/18/17 21:15 Dose: 3 ml Albuterol/Ipratropium (Duoneb 3 Mg/0.5 Mg (3 Ml) Ud) 3 ml IH Q2H PRN PRN Reason: Shortness of Breath Aspirin (Aspirin) 325 mg PO DAILY [facility] Atorvastatin Calcium (Lipitor) 40 mg PO DIN [facility] Last Admin: 06/18/17 17:46 Dose: 40 mg Budesonide (Pulmicort Respules) 0.5 mg IH [id number] [facility] Last Admin: 06/18/17 21:15 Dose: 0.5 mg Fenofibrate (Tricor) 145 mg PO DAILY [facility] Furosemide (Lasix) 20 mg IVP DAILY [facility] Last Admin: 06/18/17 11:59 Dose: 20 mg Gabapentin (Neurontin) 300 mg PO TID [facility] PRN Reason: Protocol Last Admin: 06/18/17 17:46 Dose: 300 mg Insulin Human Regular (Humulin R High) 0 units SC ACHS [facility] PRN Reason: Protocol Last Admin: 06/18/17 17:46 Dose: 1 units Levofloxacin (Levaquin) 500 mg PO DAILY [facility] Last Admin: 06/18/17 10:29 Dose: 500 mg Levothyroxine Sodium (Synthroid) 100 mcg PO 0600 [facility] Levothyroxine Sodium (Synthroid) 88 mcg PO ACB [facility] Losartan Potassium (Cozaar) 50 mg PO DAILY [facility] Methylprednisolone (Solu-Medrol) 40 mg IVP Q8H [facility] Last Admin: 06/18/17 14:53 Dose: 40 mg Tizanidine HCl (Zanaflex) 4 mg PO TID PRN PRN Reason: Tension - Constitutional Appears: Well, No Acute Distress - Head Exam Head Exam: ATRAUMATIC, NORMAL INSPECTION, NORMOCEPHALIC - Eye Exam Eye Exam: Normal appearance - ENT Exam ENT Exam: Normal External Ear Exam - Neck Exam Neck Exam: Normal Inspection - Respiratory Exam Respiratory Exam: NORMAL BREATHING PATTERN - Cardiovascular Exam Cardiovascular Exam: absent: JVD - GI/Abdominal Exam GI & Abdominal Exam: absent: Distended - Rectal Exam Rectal Exam: Deferred - Exam Additional comments: Deferred. - Extremities Exam Extremities Exam: Normal Inspection - Back Exam Back Exam: NORMAL INSPECTION - Neurological Exam Neurological Exam: Alert, Oriented x3 - Psychiatric Exam Psychiatric exam: Normal Affect, Normal Mood - Skin Skin Exam: Normal Color Assessment and Plan - Assessment and Plan (Free Text) Assessment: Elevated blood pressure reading. COPD. Asthma. HTN. HLD. Plan: Clonidine 0.2 mg PO stat. Later on clonidine 0.1 mg po was ordered. Continue present management.
[2017-06-19] MEDS: Albuterol-Ipratrop 3 mg / 0.5 (3 ml) UD IH SCH ×4 (02:55→22:20)
[2017-06-19] MEDS: Levothyroxine 100 MCG TAB PO SCH (05:38)
--- NOTE | 2017-06-19 07:40 | PN ---
DATE: 06/19/2017 SUBJECTIVE: The patient appears much more comfortable this morning. She is not short of breath at rest. PHYSICAL EXAMINATION: VITAL SIGNS: Temperature 98.4, pulse 69, respirations 18, blood pressure 195/82. Oxygen saturation on room air is 95%. HEENT: Normocephalic and atraumatic. NECK: No JVD. CARDIOVASCULAR: Positive S1 and S2. NO S3. LUNGS: Significant decrease in the rhonchi and wheezing bilaterally. GASTROINTESTINAL: Abdomen is soft, nontender, nondistended. Bowel sounds are positive. EXTREMITIES: No clubbing, cyanosis or edema. Calves are nontender to palpation. SKIN: No acute rash. NEUROLOGIC: Exam is limited at the present time. IMPRESSION: 1. Acute bronchitis. 2. Chronic obstructive pulmonary disease. 3. Asthma. 4. Electrolyte abnormalities. PLAN: The patient appears much more comfortable this morning. She is not short of breath at rest. Her cough is less. She states she is feeling much better overall. On physical exam, there is a significant decrease in the bronchospasm. In addition, oxygen saturation on room air is now 95%. I will continue the current nebulizer treatments and decrease the intravenous steroids this morning. The patient remains on oral antibiotic therapy. There are no temperatures noted. Repeat a.m. labs are pending. Pulmonary status of the patient has significantly improved. She is advised to be out of bed as much as possible. I will discuss the above with Dr. Guerrero. Waylon Shields MD MTDD
[2017-06-19] MEDS: Budesonide 0.5 mg/2 ml Inhal Susp UD IH SCH ×2 (07:59→22:20)
[2017-06-19 08:12] LABS: HEMOGLOBIN 12.7 gm/dL (12.0-16.0); MEAN CELL VOLUME 88.9 fL (80.0-105.0); MEAN CORPUSCULAR HEMOGLOBIN 28.2 pg (25.0-35.0); MEAN CORPUSCULAR HGB CONC 31.7 g/dl (31.0-37.0); MEAN PLATELET VOLUME 9.9 fl (7.0-11.0); RBC 4.51 10^6/uL (3.5-6.1); RED CELL DISTRIBUTION WIDTH 16.8 % (11.5-14.5); WHITE BLOOD COUNT 12.7 10^3/ul (4.5-11.0)
[2017-06-19] MEDS: Insulin Reg-HIGH-Coverage SC SCH ×4 (08:21→22:10)
[2017-06-19 08:31] LABS: ALB/GLOB RATIO 1.3 (1.1-1.8); ALBUMIN 3.5 g/dL (3.0-4.8); ALT/SGPT 37 U/L (7-56); AST/SGOT 28 U/L (15-39); BLOOD UREA NITROGEN 25 mg/dL (7-21); CALCIUM 9.3 mg/dL (8.4-10.5); GFR AFRICAN-AMERICAN > 60; GFR NON-AFRICAN AMERICAN > 60
--- NOTE | 2017-06-19 09:10 | HP ---
HISTORY OF PRESENT ILLNESS: I saw her in the office a few days ago and immediately sent her to the emergency room due to shortness of breath, congestion. She sounded horrible, it could be pneumonia versus severe COPD. She went to the emergency room then she AMA'd from the ER and now she came back because it got worse at home with congestion and cough and shortness of breath. She is a 57-year-old female smoker with acute shortness of breath, congestion, wheezing got very worse and came to the emergency room again. PAST MEDICAL HISTORY: COPD, asthma, hypertension, high cholesterol. She does have sciatica. She had a cholecystectomy. FAMILY HISTORY: Unknown. SOCIAL HISTORY: She is still smoking cigarettes. No alcohol. No drugs. ALLERGIES: NO KNOWN DRUG ALLERGIES. HOME MEDICATIONS: She takes aspirin; Lipitor for high cholesterol; Ativan; Synthroid for hypothyroid; Cozaar for hypertension. She gets oxycodone, not sure where she gets that from; Symbicort; fenofibrate for high triglycerides; Neurontin and Zanaflex. REVIEW OF SYSTEMS: No acute vision or hearing changes. She is very congested. She has short of breath and cough. It was hard for her to catch her breath and she is wheezing. No nausea, vomiting, constipation or diarrhea. No problems urinating. No neck or back pain. No skin rashes. No headache or dizziness. Extremely short of breath. Coughing congestion mucus. No chest pain or palpitations. No anxiety or depression. PHYSICAL EXAMINATION: VITAL SIGNS: She has a 98.8 temp, 94 pulse, 22 respiratory rate, 90% O2 saturation on oxygen. HEENT: Head is atraumatic and normocephalic. Extraocular muscles are intact. Pupils equal, round, reactive to light and accommodation. She is a little bit afraid, upset, and uncomfortable with congested breathing. Throat is moist. NECK: Supple. HEART: Regular rate. Normal S1 and S2. LUNGS: Wheezing bilaterally; congestion bilaterally; decreased breath sounds. ABDOMEN: Soft, nontender; positive bowel sounds. EXTREMITIES: No edema. NEUROLOGIC: GCS is 15. Cranial nerves II through XII grossly intact. SKIN: Warm and dry. Intact. Neuro: Alert and oriented x3, uncomfortable with breathing and shortness of breath and cough. LABORATORY DATA: She has multiple labs. She has a 13.4 white count, 12.6 hemoglobin, 40 hematocrit with 385 platelets. She has 143 sodium, potassium is low, replaced potassium at 3.2. BUN 23, creatinine 0.8. Sugar was 204, give her insulin coverage. Calcium 9.1, AST is 27, ALT is 34, alkaline phosphate is 90 is 44, total creatinine kinase is 128, troponin I is little bit high at 0.06, cardio involved with elevated troponin. BNP of 1340 and I will give her some Lasix with the increase in BNP. Total protein is 6.4. Chest x-ray is pending. She will have consult with Pulmonary and Cardio Solu-Medrol, oxygen. I will give her some Lasix for acute chronic obstructive pulmonary disease and elevated troponin, low potassium, high blood sugar. Vikas Guerrero DO MTDD
[2017-06-19] MEDS: levoFLOXacin 500 MG TAB PO SCH (10:44)
[2017-06-19] MEDS: Levothyroxine 88 MCG TAB PO SCH (10:51)
[2017-06-19] MEDS: Enoxaparin 30 mg Syringe SC SCH (10:52)
[2017-06-19] MEDS: MethylPREDNISolone 40 mg Vial IVP SCH ×2 (10:54→22:10)
--- NOTE | 2017-06-19 11:49 | PN ---
SUBJECTIVE: I saw her comfortable in bed this morning. Still short of breath, still coughing on IV Solu-Medrol, but better, less swollen. I think the Lasix IV is helping her. She is still short of breath. PHYSICAL EXAMINATION: VITAL SIGNS: She has 98.4 temp, 103 pulse, 195/82 blood pressure, I added Norvasc 5 mg daily, awaiting for cardiology to give their opinion, respiratory rate 20, oxygen sat is 95% on room air. HEENT: Head is atraumatic and normocephalic. Throat is dry. NECK: Supple. HEART: Regular rate. Very tachy. LUNGS: Decreased breath sounds. Congestion bilaterally, wheezes and rhonchi. ABDOMEN: Soft. EXTREMITIES: No edema today. There was more edema yesterday. She is currently on aspirin, Cozaar, DuoNeb, insulin, Lasix 20 IV mg daily which made a big difference, Levaquin p.o., Lipitor, Neurontin, Norvasc. I added Pulmicort, Solu-Medrol, she is down to 40 mg q. 12 from q. 8, Synthroid, TriCor, Tylenol, Zanaflex. Her blood pressure has been yi high. LABORATORY DATA: She has a 165 sugar, going for SMA-20 to populate. She did have a low potassium which I replaced and the BNP was high at 13.40 and the troponin was 0.06, awaiting for this morning troponin to come back. Her CBC from today was 12.7 little better 12.7 hemoglobin, 40.1 hematocrit with a 378 platelets. She was seen by pulmonology, no cardiology yet. She has acute bronchitis, COPD, asthma, elevated troponin, CHF pattern. She is doing better, breathing with less fluid and IV Solu-Medrol. Also with this positive troponin and elevated blood pressure we will see what cardiology has to say today. We will continue with aggressive treatment and care. Vikas Guerrero DO
[2017-06-19] MEDS ORDERED: Iodixanol 320 MG/ML 100 ML BOTTLE IV ONE (12:48)
--- NOTE | 2017-06-19 14:46 | CT ---
PROCEDURE: CT Chest with contrast (Pulmonary Angiogram) HISTORY: R/O PE COMPARISON: None available. TECHNIQUE: Axial computed tomography images were obtained of the chest in the pulmonary arterial phase of enhancement. Coronal and sagittal reformatted images were created and reviewed. Intravenous contrast dose: 100 cc of Visipaque Radiation dose: Total exam DLP = 478 mGy-cm. This CT exam was performed using one or more of the following dose reduction techniques: Automated exposure control, adjustment of the mA and/or kV according to patient size, and/or use of iterative reconstruction technique. FINDINGS: PULMONARY ARTERIES: There are no central or proximal emboli. The distal branches were difficult to visualize due to breathing artifact. AORTA: No acute findings. No thoracic aortic aneurysm. LUNGS: Unremarkable. No nodule, mass or pulmonary consolidation. Atelectasis at right lung base PLEURAL SPACES: Scattered calcified granuloma Unremarkable. No effusion or pneuomothorax. HEART: Unremarkable. No cardiomegaly. No significant pericardial effusion. LYMPH NODES: No lymphadenopathy. BONES, CHEST WALL: Unremarkable. No fracture or destructive lesion OTHER FINDINGS: Unremarkable. IMPRESSION: There are no central or proximal emboli. The distal branches were difficult to visualize due to breathing artifact.
--- NOTE | 2017-06-19 14:52 | CON ---
DATE: 06/19/2017 HISTORY OF PRESENT ILLNESS: The patient is a 57-year-old woman who presents with marked dyspnea. PAST MEDICAL HISTORY: Notable for severe COPD. She continues to smoke. In the past, the patient underwent cardiac workup which revealed good LV function with 50% lesions in the LAD and circumflex artery. She presents this time free of anginal symptoms. SOCIAL HISTORY: The patient is an active smoker. REVIEW OF SYSTEMS: A 14-point review of systems was reviewed. No chest pain. Progressive shortness of breath with questionable edema. PHYSICAL EXAMINATION: VITAL SIGNS: Blood pressure is 123/77, heart rate in the 70s. NECK: Negative JVD. LUNGS: Decreased breath sounds bilaterally. HEART: Reveals S1, S2. EXTREMITIES: No edema noted. No calf tenderness noted. EKG shows normal sinus rhythm with diffuse ST-T changes. IVCD noted. LABORATORY DATA: Reveals troponin indeterminate at 0.06 and 0.04. The white count is 12.7 with chemistries with glucose 164. IMPRESSION: 1. Marked dyspnea. 2. Exacerbation of chronic obstructive pulmonary disease. 3. Borderline elevated troponins. 4. Rule out pulmonary embolism. 5. History of nonobstructive coronary artery disease. Given these findings, we will repeat a troponin today. We will obtain a spiral CT to rule out pulmonary embolism. Depending on her response to therapy, we may consider performing a re-catheterization to restudy her coronaries if her indeterminate troponins cannot be explained. Hansel Kevin MD
[2017-06-20] MEDS: Albuterol-Ipratrop 3 mg / 0.5 (3 ml) UD IH SCH ×3 (03:28→13:52)
[2017-06-20] MEDS: Levothyroxine 100 MCG TAB PO SCH (06:02)
[2017-06-20 06:30] VITALS: RESP 21; TEMP 98
--- NOTE | 2017-06-20 07:20 | PN ---
DATE: 06/20/2017 SUBJECTIVE: The patient appears very comfortable this morning. She is not short of breath at rest. PHYSICAL EXAMINATION: VITAL SIGNS: Temperature 98.0, pulse 80, respirations 18/20, blood pressure 140/70. Oxygen saturation on nasal cannula is 95%. HEENT: Normocephalic and atraumatic. NECK: No JVD. CARDIOVASCULAR: Positive S1 and S2. NO S3 gallop. LUNGS: Minimal/less rhonchi. No wheezing this morning. GASTROINTESTINAL: Abdomen is soft, nontender, nondistended. Bowel sounds are positive. EXTREMITIES: No clubbing, cyanosis or edema. Calves are nontender to palpation. SKIN: No acute rash. NEUROLOGIC: Exam is limited at the present time. PERTINENT LABORATORY DATA: CAT scan of the chest was done yesterday as an angiogram protocol. There is no pulmonary embolism seen. There are some tiny scattered calcified granuloma - seen on multiple previous films. There is no mass or pulmonary consolidation. There is no lymphadenopathy. IMPRESSION: 1. Acute bronchitis. 2. Chronic obstructive pulmonary disease. 3. Asthma. 4. Electrolyte abnormalities. PLAN: The patient appears very comfortable this morning. She is not short of breath at rest. She is feeling much better overall. On physical exam, her bronchospasm continues to resolve. I will continue with the current nebulizer treatments and decrease the intravenous steroid this morning. The patient remains on antibiotic therapy. There are no temperatures noted. I did review the CAT scan of the chest - as above. There are no new significant findings noted. Cardiology evaluation is ongoing. Input by Dr. Kevin is noted. Pulmonary status of the patient has significantly improved. I will discuss the above with Dr. Guerrero. Waylon Shields MD MTDD
--- NOTE | 2017-06-20 07:26 | PQF CHF ---
This form is a permanent part of the medical record Dr. Guerrero, Chart reflects this patient was admitted with COPD exacerbation. BNP was elevated on admission and treatment included Lasix IV. Your progress notes on 06/19 noted "CHF pattern". Could you clarify if CHF was present, ruled out, undetermined. If present, please specify type and severity. Clarification of your documentation is requested to better reflect the severity of illness and intensity of treatment of your patient. Indicators present [] Diagnosis of CHF and/or history of CHF [] BNP > 200 [] Imaging Finding of Pulmonary Edema /Pleural Effusions [] Fluid/Volume Overload [] Pitting edema [] Ejection Fraction < 40% (Indicative of Systolic Heart Failure) [] Ejection Fraction > 40% (Indicative of Diastolic Heart Failure) PER PULM AND CARDIO CONSULTS I AGREE W/ THEM [] Dyspnea / Orthopenea / Paroxysmal Nocturnal Dyspnea [] Other: Location in the medical record that reflects the above clinical findings: [] Treatment Provided: [] PHYSICIAN'S RESPONSE Based on your medical judgment of the clinical indicators outlined above, are you treating this patient for a known or suspected: [] Acute CHF [] Systolic [] Diastolic [] Combined [] Chronic CHF [] Systolic [] Diastolic [] Combined [] Acute on Chronic CHF []Systolic [] Diastolic [] Combined [] CHF due hypertension [] Acute systolic []Chronic systolic [] Acute/ chronic systolic [] Other, please indicate: [] [] If Unable to Determine, please check the box, sign and date. Present On Admission (POA) Indicator: [] Present at the time of admission [] Not present at the time of admission [] Clinically Undetermined In responding to this query, please exercise your independent professional judgment. The fact that a question is asked does not imply that any particular answer is desired or expected. Thank you for your clarification on this documentation. If you have any questions please call:[ ] * Thank you, [ ]Lopez Bernard [facility] #[id number] hot iron worker SIM
[2017-06-20 07:29] LABS: HEMOGLOBIN 14.4 g/dL (12.0-16.0); MEAN CELL VOLUME 89.4 fl (80.0-105.0); MEAN CORPUSCULAR HEMOGLOBIN 28.3 pg (25.0-35.0); MEAN CORPUSCULAR HGB CONC 31.6 g/dl (31.0-37.0); MEAN PLATELET VOLUME 10.1 fl (7.0-11.0); RBC 5.09 10^6/uL (3.5-6.1); RED CELL DISTRIBUTION WIDTH 16.8 % (11.5-14.5)
[2017-06-20 07:42] LABS: ALB/GLOB RATIO 1.2 (1.1-1.8); ALBUMIN 3.7 g/dL (3.0-4.8); ALT/SGPT 35 U/L (7-56); AST/SGOT 21 U/L (15-39); BLOOD UREA NITROGEN 30 mg/dL (7-21); CALCIUM 9.3 mg/dL (8.4-10.5); GFR AFRICAN-AMERICAN > 60; GFR NON-AFRICAN AMERICAN > 60
[2017-06-20] MEDS: Levothyroxine 88 MCG TAB PO SCH (07:45)
[2017-06-20] MEDS: Insulin Reg-HIGH-Coverage SC SCH ×2 (07:55→11:50)
[2017-06-20] MEDS: Budesonide 0.5 mg/2 ml Inhal Susp UD IH SCH (08:06)
[2017-06-20 08:14] VITALS: O2SAT 94
[2017-06-20] MEDS: levoFLOXacin 500 MG TAB PO SCH (09:42)
[2017-06-20] MEDS: Enoxaparin 30 mg Syringe SC SCH (09:44)
[2017-06-20] MEDS ORDERED: MethylPREDNISolone 40 mg Vial IVP SCH (10:00)
[2017-06-20 10:02] VITALS: BP 140/80
--- NOTE | 2017-06-20 14:37 | PN ---
DATE: 06/20/2017 SUBJECTIVE: The patient's breathing is better, but still short of breath. She has persisting cough. PHYSICAL EXAMINATION: VITAL SIGNS: Blood pressure 140/80, heart rate is in the 80s. NECK: Negative JVD. LUNGS: Without rales with rhonchi. HEART: Reveal S1, S2. EXTREMITIES: Without edema. LABORATORY DATA: Hemoglobin is 14. Chemistries, glucose is 153. On a telemetry strip, there was evidence of a delta wave consistent with WPW. No arrhythmias were noted with it. The CT scan shows no pulmonary embolism. IMPRESSION: 1. Exacerbation of chronic obstructive pulmonary disease. 2. Nonobstructive coronary artery disease. 3. Asymptomatic [id number]-Cnwcy. 4. Hypertension. 5. No evidence for pulmonary embolism. Given these findings, I have discussed with the patient with her friend in the room that the patient cannot smoke any more and the importance of her stopping smoking. In addition, I have discussed in detail about WPW. The patient needs to avoid AV mimi blocking drugs light digoxin, beta blockers or calcium channel blockers. We will obtain an out outpatient stress test once her breathing has improved from her exacerbation of COPD to evaluate her nonobstructive CAD. Hansel Kevin MD
[2017-06-20 14:53] VITALS: PULSE 109
--- NOTE | 2017-06-21 02:53 | DS ---
SUBJECTIVE: Juana is resting comfortably in bed. She is breathing better, doing better, and eating better. She is on aspirin, Cozaar, DuoNebs, insulin, Lasix, Levaquin, Lipitor, Lovenox, Neurontin, Norvasc, Pulmicort, Solu-Medrol, Synthroid, TriCor, Tylenol, and Zanaflex. PHYSICAL EXAMINATION: VITAL SIGNS: 98 temperature, 80 pulse, 140/70 blood pressure, 21 respiratory rate, 95% O2 sat on nasal cannula. HEENT: Head is atraumatic and normocephalic. Throat is moist. NECK: Supple. HEART: Regular rate. LUNGS: Actually clear today. No wheezes or rhonchi. No rales. Breathing well. No shortness of breath. No chest pain. ABDOMEN: Soft. EXTREMITIES: No edema. MEDICATIONS: She is going to go home on her aspirin, Cozaar, DuoNebs, Lasix, Levaquin, Lipitor, Neurontin, Norvasc, Pulmicort; prednisone 40 for 2 days, 30 for 2 days, 20 for 2 days, 10 for 2 day and stop; Synthroid, TriCor, Zanaflex. LABORATORY DATA: She has a 11 white count, 14.4 hemoglobin, 45.5 hematocrit with 428 platelets, 140 sodium, potassium 4.4, BUN 30, creatinine 0.8, GFR is greater than 60, sugar 153, calcium is 9.3, total bilirubin is 0.4, AST is 21, ALT is 35, alkaline phosphate is 94, and total protein 6.7. ASSESSMENT AND PLAN: She was been seen by cardiology and pulmonary, they both said she can be discharged to followup in the outpatient with Dr. Shields and Dr. Kevin for possible outpatient stress test versus cath. She will see me in the office in the next 10 days. She was here for her chronic obstructive pulmonary disease, congestive heart failure, borderline troponin. Master Guerrero DO
== END 2017-06-20 18:39 | disposition home or self-care (01) | DRG 192 ==
LOC: ED 23:13 → ERH 06-18 00:57 → 3RSO 06-18 02:04 → OBSVTOIN 06-18 10:50
PROVIDERS: ADMIT Family Medicine; ATTEND Family Medicine
DX: J44.1 Chronic obstructive pulmonary disease with (acute) exacerbation (principal); I11.0 Hypertensive heart disease with heart failure; I50.9 Heart failure, unspecified; J44.0 Chronic obstructive pulmonary disease with (acute) lower respiratory infection; J20.9 Acute bronchitis, unspecified; E87.8 Other disorders of electrolyte and fluid balance, not elsewhere classified; I25.10 Atherosclerotic heart disease of native coronary artery without angina pectoris; E78.00 Pure hypercholesterolemia, unspecified; M54.30 Sciatica, unspecified side; F17.210 Nicotine dependence, cigarettes, uncomplicated; R73.9 Hyperglycemia, unspecified; E78.5 Hyperlipidemia, unspecified; Z79.82 Long term (current) use of aspirin

== ENCOUNTER 2018-12-19 11:46 | Outpatient (CLI) | payer MEDICARE, MEDICAID | END 2018-12-19 11:47 | disposition home or self-care (01) | LOC: RAD 11:46 | DX: I87.9 Disorder of vein, unspecified (principal) ==